=== PATIENT | male | born 1985 | race Caucasian/White ===

== ENCOUNTER 2021-04-20 04:25 | Emergency (ER) | payer SELFPAY ==
[~2021-04-20] VITALS: Ht 167.6 cm; Wt 65.8 kg
[2021-04-20] MEDS ORDERED: LIDOCAINE 1%-EPI 1:100,000 20 ML VIAL ONE (05:31)
[2021-04-20] MEDS ORDERED: HYDR-3973 PO (06:08)
[2021-04-20] MEDS ORDERED: HYDROCODONE/APAP 5/325MG TABLET ONE (06:13)
[2021-04-20 06:19] VITALS: BP 144/70
--- NOTE | 2021-04-20 06:19 | NUR ---
Patient discharged to home in stable condition. Written and verbal after care instructions given. Patient verbalizes understanding of instruction.
[2021-04-20] MEDS ORDERED: HYDROCODONE/APAP 5/325MG TABLET PO ONE (06:30)
== END 2021-04-20 06:20 | disposition home or self-care (01) ==
LOC: ER 04:34
DX: S02.602A Fracture of unspecified part of body of left mandible, initial encounter for closed fracture (principal); S02.601A Fracture of unspecified part of body of right mandible, initial encounter for closed fracture; M27.2 Inflammatory conditions of jaws; L02.01 Cutaneous abscess of face; X58.XXXA Exposure to other specified factors, initial encounter; Y93.89 Activity, other specified; Y92.89 Other specified places as the place of occurrence of the external cause; Y99.8 Other external cause status
CPT/HCPCS: 10060; 70486; 99284; A6403; J3490

== ENCOUNTER 2023-04-30 12:17 | Emergency (ER) | payer OTHER ==
[~2023-04-30] VITALS: Ht 182.9 cm; Wt 66.7 kg
[~2023-04-30 12:17] MED LIST: HYDR-3973 PO
[2023-04-30] MEDS ORDERED: ERYT3.5O9 LEFTEYE (13:58)
[2023-04-30 14:11] VITALS: BP 112/71; TEMP 98.7; O2SAT 100
== END 2023-04-30 14:07 ==
LOC: ER 12:24
DX: S05.02XA Injury of conjunctiva and corneal abrasion without foreign body, left eye, initial encounter (principal); H10.212 Acute toxic conjunctivitis, left eye; Z79.899 Other long term (current) drug therapy; X58.XXXA Exposure to other specified factors, initial encounter; Y93.89 Activity, other specified; Y92.89 Other specified places as the place of occurrence of the external cause; Y99.8 Other external cause status